=== PATIENT | female | born 1995 | race American Indian/Alaskan Native ===

== ENCOUNTER 2016-11-28 16:27 | Emergency (ER) | payer OTHER ==
[2016-11-28] MEDS ORDERED: TYLENOL PO ONE (17:18)
[2016-11-28 17:49] LABS: Basophils % (Auto) 0.5 % (0.0-1.8); Eosinophils % (Auto) 0.2 % (0.0-4.3); Hemoglobin 14.1 gm/dl (10.1-14.3); Mean Corpuscular HGB Conc 34 % (30-34); Mean Corpuscular Hemoglobin 31 pg (28-32); Mean Corpuscular Volume 91 fl (79-97); Platelet Count 206 K/mm3 (140-440); Red Blood Count 4.52 M/mm3 (3.65-5.03); Red Cell Distribution Width 12.6 % (13.2-15.2); White Blood Count 8.9 K/mm3 (4.5-11.0)
[2016-11-28 18:13] LABS: Bilirubin,Urine NEG (Negative); Blood,Urine MOD (Negative); Ketones,Urine 20 mg/dL (Negative); Leukocyte Esterase,Urine NEG (Negative); Mucus,Urine 1+ /HPF; Nitrite,Urine NEG (Negative); Protein,Urine <15 mg/dL mg/dL (Negative); Urobilinogen,Urine < 2.0 mg/dL (<2.0)
[2016-11-28 18:13] LABS: Alanine Aminotransferase 15 units/L (7-56); Albumin 4.5 g/dL (3.9-5); Albumin/Globulin Ratio 1.3 %; Alkaline Phosphatase 79 units/L (35-129); Anion Gap 23 mmol/L; BUN/Creatinine Ratio 18.33; Bilirubin,Total 0.5 mg/dL (0.1-1.2); Blood Urea Nitrogen 11 mg/dL (7-17); Calcium 9.2 mg/dL (8.4-10.2); Carbon Dioxide 20 mmol/L (22-30); Chloride 98.3 mmol/L (98-107); Glucose 83 mg/dL (65-100); Lipase 14 units/L (13-60); Potassium 3.7 mmol/L (3.6-5.0); Sodium 138 mmol/L (137-145); Total Protein 8.1 g/dL (6.3-8.2)
[2016-11-28] MEDS ORDERED: TORADOL IV ONE (21:28)
[2016-11-28] MEDS ORDERED: ZOFRAN IV ONE (21:28)
--- NOTE | 2016-11-28 21:29 | Emergency Department Report ---
ED Abdominal Pain HPI - General Chief Complaint: Abdominal Pain Stated Complaint: CHEST PAIN/BACK/STOMACH PAIN/EMESIS Time Seen by Provider: 11/28/16 20:54 Source: patient, RN notes reviewed Mode of arrival: Ambulatory Limitations: No Limitations - History of Present Illness Initial Comments: This is a 21-year-old female, previously unknown to me. Patient presents to the ER with lower back pain, lower abdominal pain, nausea and vomiting. The abdominal pain started in the paralumbar back. It was associated with bilateral lower abdominal pain. A stool with 10 episodes of nonbloody, nonbilious emesis. No irritative urinary symptoms, the patient is sexually active with one male partner, denies a history of dyspareunia. There is some history of positive family contacts with similar symptoms. Patient was given acetaminophen prior to my evaluation, and she reports that her symptoms are mostly improved. There is no family weakness. There is no extremity numbness. There is no bladder or bowel retention or incontinence. There is no saddle anesthesia. She is defecating normally. MD Complaint: abdominal pain -: Gradual Location: LLQ, RLQ, suprapubic Radiation: other (pain is also in the lower back.) Severity: mild Severity scale (0 -10): 3 Quality: cramping Consistency: now resolved Improves With: medication Context: possible food poisoning Associated Symptoms: nausea, vomiting - Related Data Previous Rx's Medication Instructions Recorded Last Taken Type Dicyclomine [Bentyl] 10 mg PO QID PRN #20 capsule 11/29/16 Unknown Rx Ondansetron [Zofran Odt] 4 mg PO QID PRN #20 tab.rapdis 11/29/16 Unknown Rx Allergies Allergy/AdvReac Type Severity Reaction Status Date / Time No Known Allergies Allergy Verified 11/28/16 20:58 ED Review of Systems ROS: Stated complaint: CHEST PAIN/BACK/STOMACH PAIN/EMESIS Other details as noted in HPI Constitutional: denies: fever, weakness Eyes: denies: eye discharge ENT: denies: epistaxis Respiratory: denies: cough Cardiovascular: denies: chest pain Gastrointestinal: abdominal pain Genitourinary: denies: urgency, dysuria, discharge Musculoskeletal: back pain Skin: denies: lesions Neurological: denies: weakness Psychiatric: as per HPI ED Past Medical Hx - Past Medical History Previous Medical History?: No - Surgical History Past Surgical History?: No - Social History Smoking Status: Never Smoker Substance Use Type: Alcohol - Medications Home Medications: Home Medications Medication Instructions Recorded Confirmed Last Taken Type Dicyclomine [Bentyl] 10 mg PO QID PRN #20 capsule 11/29/16 Unknown Rx Ondansetron [Zofran Odt] 4 mg PO QID PRN #20 tab.rapdis 11/29/16 Unknown Rx ED Physical Exam - General Limitations: No Limitations General appearance: alert, in no apparent distress - Head Head exam: Present: atraumatic, normocephalic - Eye Eye exam: Present: normal appearance, EOMI. Absent: nystagmus - ENT ENT exam: Present: normal exam, normal orophraynx, mucous membranes moist, normal external ear exam - Neck Neck exam: Present: normal inspection, full ROM. Absent: tenderness, meningismus - Respiratory Respiratory exam: Present: normal lung sounds bilaterally. Absent: respiratory distress, wheezes, rales, rhonchi, stridor, chest wall tenderness - Cardiovascular Cardiovascular Exam: Present: regular rate, normal rhythm, normal heart sounds. Absent: bradycardia, tachycardia, irregular rhythm, systolic murmur, diastolic murmur, rubs, gallop - GI/Abdominal GI/Abdominal exam: Present: soft (there is no right upper or left upper quadrant tenderness), tenderness, normal bowel sounds, other (there is mild left lower abdominal tenderness, there is no rebound, guarding or peritoneal signs.). Absent: distended, guarding, rebound, rigid, pulsatile mass - External exam: Present: normal external exam Speculum exam: Present: normal speculum exam Bi-manual exam: Present: normal bi-manual exam, other (during the gynecologic examination, I am escorted by nurse Natalia Giraldo). Absent: cervical motion tendernes, adnexal tenderness, uterine enlargement, uterine tenderness - Extremities Exam Extremities exam: Present: normal inspection, full ROM, normal capillary refill. Absent: tenderness, pedal edema, joint swelling, calf tenderness - Back Exam Back exam: Present: normal inspection, full ROM, paraspinal tenderness. Absent : tenderness, CVA tenderness (R), CVA tenderness (L), muscle spasm - Neurological Exam Neurological exam: Present: alert, oriented X3, normal gait, other (Extraocular movements intact. Tongue midline. No facial droop. Facial sensation intact to light touch in the V1, V2, V3 distribution bilaterally. 5 and 5 strength in 4 extremities.. Sensation is intact to light touch in 4 extremities.). Absent : motor sensory deficit - Psychiatric Psychiatric exam: Present: normal affect, normal mood - Skin Skin exam: Present: warm, dry, intact, normal color. Absent: rash ED Course Vital Signs 11/28/16 11/28/16 11/28/16 16:35 20:29 20:30 Temperature 98.4 F 98.5 F Pulse Rate 84 80 Respiratory 20 12 12 Rate Blood Pressure 153/90 Blood Pressure 115/82 [Left] O2 Sat by Pulse 100 98 98 Oximetry 11/29/16 01:27 Temperature Pulse Rate 74 Respiratory 12 Rate Blood Pressure Blood Pressure 121/84 [Left] O2 Sat by Pulse 100 Oximetry - Reevaluation(s) Reevaluation #1: 11/28/16 22:29 Differential diagnosis: Pancreatitis, urinary tract infection, appendicitis, pelvic inflammatory disease, gastroenteritis, ovarian cyst Assessment and plan: 21-year-old female with lower back pain, lower abdominal pain, nausea and vomiting. She has appropriate strength and sensation, there is no clinical indication of epidural compression syndrome at this time. She denies irritative and obstructive urinary symptoms, and a urinalysis is not corroborate urinary tract infection. Laboratory studies were unremarkable, including normal lipase. Therefore, I think biliary disease and pancreatitis are very unlikely. She had a benign gynecologic examination with no tenderness or obvious discharge, therefore I think ovarian cyst, ovarian torsion, and pelvic inflammatory disease are very unlikely as well. Patient admits to chronic marijuana consumption, there is no improvement in her symptoms while taking a hot shower, so cannabinoid hyperemesis syndrome may be a possibility. We will obtain a CAT scan of abdomen and pelvis to exclude surgical disease. She is counseled to discontinue marijuana consumption. Reevaluation #2: 11/29/16 01:12 reassessed. I have reassessed the patient multiple times since my initial evaluation. Her abdomen is soft. She is tolerating liquid feeds. There is no active nausea and vomiting. The CT scan results are reviewed and appreciated. they're discussed with the general surgeon, Dr. Foley. Given that patient is afebrile, is tolerating liquid feeds, does not have leukocytosis, does not currently have abdominal tenderness, Dr Foley did not feel the patient requires emergent surgical intervention or admission. he opined that the patient would be suitable for an outpatient work up. Patient will need to follow up with outpatient gastroenterology for further management and evaluation. The patient is recommended to discontinue marijuana consumption. I had an extensive discussion with the patient and her mother. They both prefer to be discharged and to follow up with outpatient primary care and gastroenterology. Return precautions are extensively reviewed. 11/29/16 01:15 11/29/16 01:16 ED Medical Decision Making - Lab Data Result diagrams: 11/28/16 17:24 11/28/16 17:24 Vital Signs 11/28/16 11/28/16 11/28/16 16:35 20:29 20:30 Temperature 98.4 F 98.5 F Pulse Rate 84 80 Respiratory 20 12 12 Rate Blood Pressure 153/90 Blood Pressure 115/82 [Left] O2 Sat by Pulse 100 98 98 Oximetry Lab Results 11/28/16 11/28/16 11/28/16 Range/Units 17:24 17:24 17:24 WBC 8.9 (4.5-11.0) K/mm3 RBC 4.52 (3.65-5.03) M/mm3 Hgb 14.1 (10.1-14.3) gm/dl Hct 41.0 (30.3-42.9) % MCV 91 (79-97) fl MCH 31 (28-32) pg MCHC 34 (30-34) % RDW 12.6 L (13.2-15.2) % Plt Count 206 (140-440) K/mm3 Lymph % (Auto) 7.0 L (13.4-35.0) % Swain % (Auto) 3.8 (0.0-7.3) % Eos % (Auto) 0.2 (0.0-4.3) % Baso % (Auto) 0.5 (0.0-1.8) % Lymph # 0.6 L (1.2-5.4) K/mm3 Swain # 0.3 (0.0-0.8) K/mm3 Eos # 0.0 (0.0-0.4) K/mm3 Baso # 0.0 (0.0-0.1) K/mm3 Seg Neutrophils % 88.5 H (40.0-70.0) % Seg Neutrophils # 7.9 H (1.8-7.7) K/mm3 Sodium 138 (137-145) mmol/L Potassium 3.7 (3.6-5.0) mmol/L Chloride 98.3 (98-107) mmol/L Carbon Dioxide 20 L (22-30) mmol/L Anion Gap 23 mmol/L BUN 11 (7-17) mg/dL Creatinine 0.6 L (0.7-1.2) mg/dL Estimated GFR > 60 ml/min BUN/Creatinine Ratio 18.33 % Glucose 83 (65-100) mg/dL Calcium 9.2 (8.4-10.2) mg/dL Total Bilirubin 0.5 (0.1-1.2) mg/dL AST 19 (5-40) units/L ALT 15 (7-56) units/L Alkaline Phosphatase 79 (35-129) units/L Total Protein 8.1 (6.3-8.2) g/dL Albumin 4.5 (3.9-5) g/dL Albumin/Globulin Ratio 1.3 % Lipase 14 (13-60) units/L HCG, Qual Negative (Negative) Urine Color (Yellow) Urine Turbidity (Clear) Urine pH (5.0-7.0) Ur Specific [place] (1.003-1.030) Urine Protein (Negative) mg/dL Urine Glucose (UA) (Negative) mg/dL Urine Ketones (Negative) mg/dL Urine Blood (Negative) Urine Nitrite (Negative) Urine Bilirubin (Negative) Urine Urobilinogen (<2.0) mg/dL Ur Leukocyte Esterase (Negative) Urine WBC (Auto) (0.0-6.0) /HPF Urine RBC (Auto) (0.0-6.0) /HPF U Epithel Cells (Auto) (0-13.0) /HPF Urine Mucus /HPF 11/28/16 Range/Units 17:54 WBC (4.5-11.0) K/mm3 RBC (3.65-5.03) M/mm3 Hgb (10.1-14.3) gm/dl Hct (30.3-42.9) % MCV (79-97) fl MCH (28-32) pg MCHC (30-34) % RDW (13.2-15.2) % Plt Count (140-440) K/mm3 Lymph % (Auto) (13.4-35.0) % Swain % (Auto) (0.0-7.3) % Eos % (Auto) (0.0-4.3) % Baso % (Auto) (0.0-1.8) % Lymph # (1.2-5.4) K/mm3 Swain # (0.0-0.8) K/mm3 Eos # (0.0-0.4) K/mm3 Baso # (0.0-0.1) K/mm3 Seg Neutrophils % (40.0-70.0) % Seg Neutrophils # (1.8-7.7) K/mm3 Sodium (137-145) mmol/L Potassium (3.6-5.0) mmol/L Chloride (98-107) mmol/L Carbon Dioxide (22-30) mmol/L Anion Gap mmol/L BUN (7-17) mg/dL Creatinine (0.7-1.2) mg/dL Estimated GFR ml/min BUN/Creatinine Ratio % Glucose (65-100) mg/dL Calcium (8.4-10.2) mg/dL Total Bilirubin (0.1-1.2) mg/dL AST (5-40) units/L ALT (7-56) units/L Alkaline Phosphatase (35-129) units/L Total Protein (6.3-8.2) g/dL Albumin (3.9-5) g/dL Albumin/Globulin Ratio % Lipase (13-60) units/L HCG, Qual (Negative) Urine Color Yellow (Yellow) Urine Turbidity Clear (Clear) Urine pH 5.0 (5.0-7.0) Ur Specific [place] 1.030 (1.003-1.030) Urine Protein <15 mg/dl (Negative) mg/dL Urine Glucose (UA) Neg (Negative) mg/dL Urine Ketones 20 (Negative) mg/dL Urine Blood Mod (Negative) Urine Nitrite Neg (Negative) Urine Bilirubin Neg (Negative) Urine Urobilinogen < 2.0 (<2.0) mg/dL Ur Leukocyte Esterase Neg (Negative) Urine WBC (Auto) 2.0 (0.0-6.0) /HPF Urine RBC (Auto) 2.0 (0.0-6.0) /HPF U Epithel Cells (Auto) 3.0 (0-13.0) /HPF Urine Mucus 1+ /HPF - Radiology Data Radiology results: report reviewed, image reviewed CT scan of the abdomen and pelvis with IV contrast: There is a focal small bowel intussusception in the left upper quadrant. Normal appendix. No evidence of bowel ischemia. Most likely transient in the left upper quadrant. There is no obstruction or mass. This could be due to underlying lymphoid hyperplasia. Critical care attestation.: If time is entered above; I have spent that time in minutes in the direct care of this critically ill patient, excluding procedure time. ED Disposition Clinical Impression: Abdominal pain Disposition: DISCHARGED TO HOME OR SELFCARE Is pt being admited?: No Does the pt Need Aspirin: No Condition: Stable Instructions: Intussusception in Children (ED), Abdominal Pain (ED) Additional Instructions: Take the pain medication, nausea medication as directed. Discontinue consumption of marijuana. Cultures were sent today, results will be available the next 3-5 days. Follow-up with gastroenterology within the next 3-[address] Tucker is a local street supervisor. You may contact [place] [facility] at the patient service hotline at the following number: [phone] ([phone]) Not following up with gastroenterology and timely fashion may result in undiagnosed tumor/cancer/malignancy. Return to the ER right away with new pain, worsened pain, migration of pain, fevers or chills, intractable nausea or vomiting, severe pain, inability to tolerate liquid feeds. Dr. Guo is a local primary care doctor. Prescriptions: Dicyclomine [Bentyl] 10 mg PO QID PRN #20 capsule PRN Reason: Pain Ondansetron [Zofran Odt] 4 mg PO QID PRN #20 tab.rapdis PRN Reason: Nausea Referrals: PRIMARY CARE,MD [Primary Care Provider] - 3-5 Days CELINA TUCKER MD [Staff Physician] - 3-5 Days BETTIE FOLEY MD [Staff Physician] - 3-5 Days BRIDGER GUO MD [Staff Physician] - 3-5 Days Forms: Accompanied Note, Work/School Release Form(ED)
[2016-11-28] MEDS ORDERED: NACL 0.9% 1000 ML 1,000 ML IV ONE (22:00)
[2016-11-28] MEDS ORDERED: NACL ONE (23:50)
--- NOTE | 2016-11-29 00:32 | Cat Scan Report ---
FINAL REPORT PROCEDURE: CT ABDOMEN PELVIS W CON TECHNIQUE: Computerized axial tomography of the abdomen and pelvis was performed after the IV injection of iodinated nonionic contrast. HISTORY: abd pain n/v COMPARISON: No prior studies are available for comparison. FINDINGS: Visualized lower thorax: No significant abnormality. Liver: Normal size and attenuation. Spleen: Normal size and attenuation. Gallbladder and biliary system: Normal. Pancreas: Normal. Adrenals: Normal. Kidneys: Normal. GI tract: There is of focal small bowel intussusception the left upper quadrant seen on image 69 which is most likely transient. There is no obstruction or mass. If symptoms persist, small bowel follow-through may be helpful. There is no specific evidence of enteritis or ischemia. The colon and appendix are normal.. Lymph nodes and mesentery: There are prominent mesenteric lymph nodes which are nonspecific but could indicate mesenteric adenitis.. Vasculature: Normal. Bladder: Normal. Reproductive organs: The uterus and ovaries are unremarkable.. Peritoneum: There is minimal free pelvic fluid which is nonspecific.. Musculoskeletal structures: No significant abnormality. Other: None. IMPRESSION: There is of focal small bowel intussusception the left upper quadrant seen on image 69 which is most likely transient. There is no obstruction or mass. There could be underlying lymphoid hyperplasia. If symptoms persist, small bowel follow-through may be helpful. There is no specific evidence of enteritis or bowel ischemia. The colon and appendix are normal.. There are prominent mesenteric lymph nodes which are nonspecific but could indicate mesenteric adenitis.. The uterus and ovaries are unremarkable.. There is minimal free pelvic fluid which is nonspecific..
[2016-11-29 01:27] VITALS: BP 121/84
== END 2016-11-29 01:28 | disposition home or self-care (01) ==
LOC: ED 16:27
DX: R10.30 Lower abdominal pain, unspecified (principal)
CPT/HCPCS: 36415; 74177; 80053; 81001; 83690; 84703; 85025; 87210; 87591; 96361; 96374; 96375; 99285; J1885; J2405; J7030; Q9967